=== PATIENT | male | born 1975 | race Caucasian/White ===

== ENCOUNTER 2016-12-15 12:15 | Emergency (ER) | payer BC | END 2016-12-15 12:18 | disposition home or self-care (01) | LOC: ER 12:15 | DX: S70.361A Insect bite (nonvenomous), right thigh, initial encounter (principal); W57.XXXA Bitten or stung by nonvenomous insect and other nonvenomous arthropods, initial encounter; Z79.899 Other long term (current) drug therapy | CPT/HCPCS: 99282 ==